=== PATIENT | female | born 1985 | race African-American/Black ===

== ENCOUNTER 2017-08-27 09:17 | Emergency (ER) | payer SELFPAY ==
[~2017-08-27 09:17] MED LIST: MEDR150P IM
[2017-08-27 09:19] VITALS: BP 104/86; PULSE 98; RESP 16; TEMP 98.7; O2SAT 100
[2017-08-27] MEDS ORDERED: SODIUM CHLOR 0.9% 1000 ML INJ 1,000 ML IV SCH (09:52)
[2017-08-27] MEDS ORDERED: KETOROLAC TROMETHAMINE 30 MG/ML (IVP) VIAL IVP ONE (10:00)
[2017-08-27] MEDS ORDERED: SODIUM CHLORIDE 0.9% FLUSH 10 ML FLUSH IV FLUSH PRN (10:00)
[2017-08-27] MEDS ORDERED: ONDANSETRON HCL 4 MG/2 ML VIAL IVP ONE (10:00)
[2017-08-27 10:26] LABS: AUTOMATED NEUTROPHIL # 2.5 TH/MM3 (1.8-7.7); BASOPHIL % 0.3 % (0.0-2.0); EOSINOPHIL % 0.2 % (0.0-4.0); HEMATOCRIT 39.1 % (35.0-46.0); HEMO FLAGS DIFF FINAL; LYMPH % 25.5 % (9.0-44.0); MEAN CELL VOLUME 86.6 FL (80.0-100.0); MEAN CORPUSCULAR HEMOGLOBIN 29.4 PG (27.0-34.0); MONO % 10.4 % (0.0-8.0); NEUT % 63.6 % (16.0-70.0); PLATELET COUNT 241 TH/MM3 (150-450); RED BLOOD COUNT 4.52 MIL/MM3 (4.00-5.30); RED CELL DISTRIBUTION WIDTH 12.7 % (11.6-17.2)
[2017-08-27 10:37] LABS: BACTERIA, URINE MANY /hpf; BLOOD, URINE LARGE (NEG); COMMENT (UR) CULTURE INDICATED; CULTURE IF INDICATED CULTURE INDICATED; GLUCOSE,URINE NEG (NEG); KETONE, URINE NEG (NEG); MUCUS URINE MOD /lpf (OCC); NITRITE,URINE NEG (NEG); PH, URINE 5.5 (5.0-8.5); SQUAMOUS EPITHELIAL CELL URINE 52 /hpf (0-5); URINE COLOR YELLOW (YELLW/STRAW)
[2017-08-27 10:40] LABS: ALT (GPT) 41 U/L (10-53); ANION GAP 5 MEQ/L (5-15); AST (GOT) 16 U/L (15-37); BICARBONATE 27.4 MEQ/L (21.0-32.0); BLOOD UREA NITROGEN 14 MG/DL (7-18); CHLORIDE 107 MEQ/L (98-107); GLOMERULAR FILTRATION RATE 85 ML/MIN (>89); POTASSIUM 3.4 MEQ/L (3.5-5.1); SODIUM (NA) 139 MEQ/L (136-145)
[2017-08-27 10:43] LABS: ALKALINE PHOSPHATASE 70 U/L (45-117); TOTAL BILIRUBIN ADULT 0.5 MG/DL (0.2-1.0)
--- NOTE | 2017-08-27 11:36 | PD ---
HPI Chief Complaint: Abdominal Pain Time Seen by Provider: 09:31 Travel History International Travel<30 days: No Contact w/Intl Traveler<30days: No Traveled to known affect area: No History of Present Illness HPI 32 year old female presents for evaluation of six weeks of abdominal pain with associated nausea, vomiting and diarrhea. She denies recent travel, antibiotic use, or sick contacts. She states that the nausea and vomiting began about 2-3 weeks ago but she has been having the ongoing abdominal pain for 6 weeks. The only abdominal surgery she has had was a two years ago. She is unsure of her family history due to adoption. She has never undergone a colonoscopy. She has not taken anything for this condition. PFSH Past Medical History ?: Not Social History Alcohol Use: No Tobacco Use: No Substance Use: No Allergies-Medications (Allergen,Severity, Reaction): Coded Allergies: Fish Containing Products (Unverified Allergy, Severe, HIVES, 08/27/17) Reported Meds & Prescriptions Reported Meds & Active Scripts Active Zofran (Ondansetron HCl) 4 Mg Tab 4 Mg PO Q6HR PRN Review of Systems Except as stated in HPI: all other systems reviewed are Neg General / Constitutional: No: Fever, Chills Eyes: No: Diploplia, Blurred Vision HENT: No: Headaches, Vertigo, Lightheadedness Cardiovascular: No: Chest Pain or Discomfort, Palpitations Respiratory: No: Cough, Shortness of Breath Gastrointestinal: Positive: Nausea, Vomiting, Diarrhea, Abdominal Pain, Changes in Bowel Habits, No: Hematemesis, Hematochezia Genitourinary: No: Urgency, Frequency, Dysuria Physical Exam Narrative GENERAL: patient is laying in bed in no acute distress, SKIN: Warm and dry. HEAD: Atraumatic. Normocephalic. EYES: Pupils equal and round. No scleral icterus. No injection or drainage. ENT: No nasal bleeding or discharge. Mucous membranes pink and moist. NECK: Trachea midline. No JVD. CARDIOVASCULAR: Regular rate and rhythm. RESPIRATORY: No accessory muscle use. Clear to auscultation. Breath sounds equal bilaterally. GASTROINTESTINAL: Abdomen soft, diffusely tender to palpation, nondistended. Hepatic and splenic margins not palpable. MUSCULOSKELETAL: Extremities without clubbing, cyanosis, or edema. No obvious deformities. NEUROLOGICAL: Awake and alert. No obvious cranial nerve deficits. Motor grossly within normal limits. Five out of 5 muscle strength in the arms and legs. Normal speech. PSYCHIATRIC: Appropriate mood and affect; insight and judgment normal. Data Data Last Documented VS Vital Signs Date Time Temp Pulse Resp B/P (MAP) Pulse Ox O2 Delivery O2 Flow Rate FiO2 08/27/17 11:51 08/27/17 09:19 98.7 98 16 100 Room Air Orders Orders Urinalysis - C+S If Indicated (08/27/17 09:52) Ed Urine Pregnancytest Poc (08/27/17 09:52) Complete Blood Count With Diff (08/27/17 09:52) Comprehensive Metabolic Panel (08/27/17 09:52) Lipase (08/27/17 09:52) Iv Access Insert/Monitor (08/27/17 09:52) Ecg Monitoring (08/27/17 09:52) Oximetry (08/27/17 09:52) Ondansetron Inj (Zofran Inj) (08/27/17 10:00) Sodium Chlor 0.9% 1000 Ml Inj (Ns 1000 M (08/27/17 09:52) Sodium Chloride 0.9% Flush (Ns Flush) (08/27/17 10:00) Ketorolac Inj (Toradol Inj) (08/27/17 10:00) Urine Culture (08/27/17 09:30) Ed Discharge Order (08/27/17 11:35) Labs Laboratory Tests Test 08/27/17 09:30 08/27/17 10:05 Urine Color YELLOW Urine Turbidity CLOUDY Urine pH 5.5 Urine Specific [place] 1.041 Urine Protein 100 mg/dL Urine Glucose (UA) NEG mg/dL Urine Ketones NEG mg/dL Urine Occult Blood LARGE Urine Nitrite NEG Urine Bilirubin NEG Urine Urobilinogen 2.0 MG/DL Urine Leukocyte Esterase NEG Urine RBC 6 /hpf Urine WBC 3 /hpf Urine Squamous Epithelial Cells 52 /hpf Urine Bacteria MANY /hpf Urine Mucus MOD /lpf Microscopic Urinalysis Comment CULTURE INDICATED White Blood Count 4.0 TH/MM3 Red Blood Count 4.52 MIL/MM3 Hemoglobin 13.3 GM/DL Hematocrit 39.1 % Mean Corpuscular Volume 86.6 FL Mean Corpuscular Hemoglobin 29.4 PG Mean Corpuscular Hemoglobin Concent 34.0 % Red Cell Distribution Width 12.7 % Platelet Count 241 TH/MM3 Mean Platelet Volume 7.4 FL Neutrophils (%) (Auto) 63.6 % Lymphocytes (%) (Auto) 25.5 % Monocytes (%) (Auto) 10.4 % Eosinophils (%) (Auto) 0.2 % Basophils (%) (Auto) 0.3 % Neutrophils # (Auto) 2.5 TH/MM3 Lymphocytes # (Auto) 1.0 TH/MM3 Monocytes # (Auto) 0.4 TH/MM3 Eosinophils # (Auto) 0.0 TH/MM3 Basophils # (Auto) 0.0 TH/MM3 CBC Comment DIFF FINAL Differential Comment Blood Urea Nitrogen 14 MG/DL Creatinine 0.92 MG/DL Random Glucose 85 MG/DL Total Protein 7.7 GM/DL Albumin 3.7 GM/DL Calcium Level 8.3 MG/DL Alkaline Phosphatase 70 U/L Aspartate Amino Transf (AST/SGOT) 16 U/L Alanine Aminotransferase (ALT/SGPT) 41 U/L Total Bilirubin 0.5 MG/DL Sodium Level 139 MEQ/L Potassium Level 3.4 MEQ/L Chloride Level 107 MEQ/L Carbon Dioxide Level 27.4 MEQ/L Anion Gap 5 MEQ/L Estimat Glomerular Filtration Rate 85 ML/MIN Lipase 321 U/L MDM Medical Decision Making Medical Screen Exam Complete: No Emergency Medical Condition: No Differential Diagnosis Crohn's, Ulcerative Colitis, Celiac Sprue, Irritable Bowel Syndrome Narrative Course CBC, CMP, U/A, Urine hCG, 4mg Zofran Patient feeling better after Zofran, benign abdomen at this time, labs are reassuring. She was offered a CAT scan but at this time I think the radiation exposure outweighs the diagnostic benefits. Patient will receive referral to GI for outpatient colonoscopy in attempt to determine the causative factors of her chronic diarrhea and abdominal pain. We will also provide her with a script for Zofran Diagnosis Primary Impression: Abdominal pain Referrals: Judson Vallecillo MD Med/Other Pt SpecificInfo: Prescription(s) given Scripts Ondansetron (Zofran) 4 Mg Tab 4 MG PO Q6HR Y for NAUSEA OR VOMITING, #20 TAB 0 Refills Prov: Bruce Gibson MD 08/27/17 Disposition: 01 DISCHARGE HOME Condition: Stable Bruce Gibson MD Aug 27, 2017 11:36
--- NOTE | 2017-08-27 11:40 | PD ---
HPI Chief Complaint: Abdominal Pain Time Seen by Provider: 09:31 Travel History International Travel<30 days: No Contact w/Intl Traveler<30days: No Traveled to known affect area: No History of Present Illness HPI 32 year old female alejandrats for evaluation of 6 weeks of abdominal pain. PFSH Past Medical History ?: Not Social History Alcohol Use: No Tobacco Use: No Substance Use: No Allergies-Medications (Allergen,Severity, Reaction): Coded Allergies: Fish Containing Products (Unverified Allergy, Severe, HIVES, 08/27/17) Reported Meds & Prescriptions Reported Meds & Active Scripts Active Zofran (Ondansetron HCl) 4 Mg Tab 4 Mg PO Q6HR PRN Data Data Last Documented VS Vital Signs Date Time Temp Pulse Resp B/P (MAP) Pulse Ox O2 Delivery O2 Flow Rate FiO2 08/27/17 11:51 08/27/17 09:19 98.7 98 16 100 Room Air Orders Orders Urinalysis - C+S If Indicated (08/27/17 09:52) Ed Urine Pregnancytest Poc (08/27/17 09:52) Complete Blood Count With Diff (08/27/17 09:52) Comprehensive Metabolic Panel (08/27/17 09:52) Lipase (08/27/17 09:52) Iv Access Insert/Monitor (08/27/17 09:52) Ecg Monitoring (08/27/17 09:52) Oximetry (08/27/17 09:52) Ondansetron Inj (Zofran Inj) (08/27/17 10:00) Sodium Chlor 0.9% 1000 Ml Inj (Ns 1000 M (08/27/17 09:52) Sodium Chloride 0.9% Flush (Ns Flush) (08/27/17 10:00) Ketorolac Inj (Toradol Inj) (08/27/17 10:00) Urine Culture (08/27/17 09:30) Ed Discharge Order (08/27/17 11:35) Labs Laboratory Tests Test 08/27/17 09:30 08/27/17 10:05 Urine Color YELLOW Urine Turbidity CLOUDY Urine pH 5.5 Urine Specific [place] 1.041 Urine Protein 100 mg/dL Urine Glucose (UA) NEG mg/dL Urine Ketones NEG mg/dL Urine Occult Blood LARGE Urine Nitrite NEG Urine Bilirubin NEG Urine Urobilinogen 2.0 MG/DL Urine Leukocyte Esterase NEG Urine RBC 6 /hpf Urine WBC 3 /hpf Urine Squamous Epithelial Cells 52 /hpf Urine Bacteria MANY /hpf Urine Mucus MOD /lpf Microscopic Urinalysis Comment CULTURE INDICATED White Blood Count 4.0 TH/MM3 Red Blood Count 4.52 MIL/MM3 Hemoglobin 13.3 GM/DL Hematocrit 39.1 % Mean Corpuscular Volume 86.6 FL Mean Corpuscular Hemoglobin 29.4 PG Mean Corpuscular Hemoglobin Concent 34.0 % Red Cell Distribution Width 12.7 % Platelet Count 241 TH/MM3 Mean Platelet Volume 7.4 FL Neutrophils (%) (Auto) 63.6 % Lymphocytes (%) (Auto) 25.5 % Monocytes (%) (Auto) 10.4 % Eosinophils (%) (Auto) 0.2 % Basophils (%) (Auto) 0.3 % Neutrophils # (Auto) 2.5 TH/MM3 Lymphocytes # (Auto) 1.0 TH/MM3 Monocytes # (Auto) 0.4 TH/MM3 Eosinophils # (Auto) 0.0 TH/MM3 Basophils # (Auto) 0.0 TH/MM3 CBC Comment DIFF FINAL Differential Comment Blood Urea Nitrogen 14 MG/DL Creatinine 0.92 MG/DL Random Glucose 85 MG/DL Total Protein 7.7 GM/DL Albumin 3.7 GM/DL Calcium Level 8.3 MG/DL Alkaline Phosphatase 70 U/L Aspartate Amino Transf (AST/SGOT) 16 U/L Alanine Aminotransferase (ALT/SGPT) 41 U/L Total Bilirubin 0.5 MG/DL Sodium Level 139 MEQ/L Potassium Level 3.4 MEQ/L Chloride Level 107 MEQ/L Carbon Dioxide Level 27.4 MEQ/L Anion Gap 5 MEQ/L Estimat Glomerular Filtration Rate 85 ML/MIN Lipase 321 U/L MDM Scripts Ondansetron (Zofran) 4 Mg Tab 4 MG PO Q6HR Y for NAUSEA OR VOMITING, #20 TAB 0 Refills Prov: Bruce Gibson MD 08/27/17 Bruce Gibson MD Aug 27, 2017 11:40
[2017-08-27] MEDS ORDERED: ZOFR4TAB PO (11:41)
== END 2017-08-27 11:53 | disposition home or self-care (01) ==
LOC: NEPD 09:17
DX: R10.9 Unspecified abdominal pain (principal); R82.99 Other abnormal findings in urine
CPT/HCPCS: 80053; 81001; 83690; 84703; 85025; 87086; 96374; 96375; 99284; J1885; J2405; J7030